=== PATIENT | male | born 1990 | race Caucasian/White ===

== ENCOUNTER → 2022-08-02 | Outpatient (REF) | payer BC ==
[~2022-08-02] MED LIST: FEVE325S RE; IBUP400T OR; PERC5TAB8 OR; PRED20TA OR
[2022-08-02 13:46] LABS: SEMEN APPEARANCE OPAQUE (OPAQUE); SEMEN VISCOSITY LIQUID (LIQUID); SEMEN VOLUME 2.6 ml (2.0-5.0); WBC CONCENTRATION <=1 M/ml (<=1 M/ml)
== END ==
LOC: M LAB REF 13:10
PROVIDERS: ATTEND Physician Assistant
DX: Z30.2 Encounter for sterilization (principal)